=== PATIENT | male | born 1975 | race Caucasian/White ===

== ENCOUNTER 2020-04-01 16:05 | Emergency (ER) | payer OTHER ==
[2020-04-01 16:19] VITALS: BMI 26.6
[2020-04-01 18:20] LABS: BASO % 0.6 % (0-2.0); EOS % 2.5 % (0-4.5); HEMATOCRIT 31.1 % (35.4-49); HEMOGLOBIN 10.8 GM/dL (11.7-16.9); LYMPH % 16.8 % (8-40); MCH 30.8 pg (25.7-33.7); MCHC 34.9 g/dl (32.0-35.9); MEAN CELL VOLUME 88.3 fl (80-96); MEAN PLT VOLUME 9.6 fl (7.5-11.1); MONO % 9.7 % (3.8-10.2); NEUT % 70.4 % (42.8-82.8); PLATELET COUNT 306 K/MM3 (134-434); RBC 3.52 M/mm3 (4.00-5.60); RDW 13.2 % (11.9-15.9); WHITE BLOOD COUNT 7.9 K/mm3 (4.0-10.0)
[2020-04-01 18:27] LABS: INR 0.88 (0.83-1.09); PROTHROMBIN TIME (PATIENT) 10.7 SEC (9.7-13.0)
[2020-04-01 18:30] LABS: ACTIVATED PTT 27.2 SECONDS (25.2-36.5)
[2020-04-01 18:41] LABS: POTASSIUM 4.5 mmol/L (3.5-5.1)
[2020-04-01 18:44] LABS: ALBUMIN 1.9 g/dl (3.4-5.0); BLOOD UREA NITROGEN 19.5 mg/dL (7-18); CALCIUM 7.7 mg/dL (8.5-10.1)
[2020-04-01 18:47] LABS: CREATININE 1.7 mg/dL (0.55-1.3)
[2020-04-01 18:48] LABS: BILIRUBIN,TOTAL 0.3 mg/dL (0.2-1)
[2020-04-01 18:49] LABS: TOT PROT 5.3 g/dl (6.4-8.2)
[2020-04-01] MEDS ORDERED: INSULIN SLIDING SCALE (NOVOLOG) 1 VIAL SQ SCH (22:00)
[2020-04-02 01:49] VITALS: BP 164/112; PULSE 92
[2020-04-02 02:04] VITALS: TEMP 98.2
[2020-04-02 02:10] LABS: EPI CELLS 9 /uL (0-25.1); HYALINE CASTS 0 /uL (0-3.1); URINE APPEARANCE CLEAR; URINE BACTERIA 11 /uL (0-1359); URINE BILIRUBIN NEGATIVE (NEGATIVE); URINE COLOR YELLOW; URINE GLUCOSE (UA) 2+ (NEGATIVE); URINE KETONE NEGATIVE (NEGATIVE); URINE LEUK ESTERASE NEGATIVE (NEGATIVE); URINE NITRITE NEGATIVE (NEGATIVE); URINE PROTEIN 3+ (NEGATIVE); URINE RBC 21 /uL (0-23.9); URINE UROBILINOGEN 0.2 mg/dL (0.2-1.0); URINE WBC 2 /uL (0-25.8)
== END 2020-04-02 02:11 | disposition short-term general hospital (02) ==
LOC: JER 16:05
DX: R29.898 Other symptoms and signs involving the musculoskeletal system (principal); M48.07 Spinal stenosis, lumbosacral region
CPT/HCPCS: 36415; 70450-TC; 70551-TC; 72125-TC; 72146-TC; 72148-TC; 75635-TC; 80053; 80061; 81003; 82550; 82553; 82962; 83721; 84484; 85025; 85610; 85730; 86850; 86900; 86901; 93005; 93010; 99285-25; Q9967